=== PATIENT | female | born 1950 | race Caucasian/White ===

== ENCOUNTER 2018-01-01 10:15 | Emergency (ER) | payer MEDICARE ==
[2018-01-01 10:59] LABS: BASOPHILS % (AUTO) 0.6 % (0.0-5.0); EOSINOPHILS % (AUTO) 2.2 % (0.0-8.0); HEMATOCRIT 48.1 % (36-48); LYMPHOCYTES % (AUTO) 27.4 % (21.0-51.0); MEAN CORPUSCULAR HEMOGLOBIN 32.2 pg (27.0-33.0); MEAN CORPUSCULAR HGB CONC 34.1 g/dL (32.0-36.0); MEAN CORPUSCULAR VOLUME 94.3 fL (79-99); MONOCYTES % (AUTO) 11.7 % (3.0-13.0); NEUTROPHILS % (AUTO) 58.1 % (40.0-77.0); PLATELET COUNT (AUTO) 251 K/uL (130-400); RED BLOOD CELL COUNT(AUTO) 5.11 MIL/uL (4.00-5.50); RED CELL DISTRIBUTION WIDTH 13.4 % (11.0-15.5); WHITE BLOOD COUNT (AUTO) 7.9 K/uL (4.8-10.8)
[2018-01-01 11:10] LABS: CARBON DIOXIDE 26 mmol/L (21-32); CHLORIDE 106 mmol/L (101-111); CREATININE 0.7 mg/dL (0.5-1.5); GLOMERULAR FILTR. RATE CALC 89 mL/min (>60); GLUCOSE,RANDOM 109 mg/dL (70-105); POTASSIUM 4.4 mmol/L (3.5-5.1); SODIUM SERUM 142 mmol/L (136-145); UREA NITROGEN, BLOOD 22 mg/dL (7-18)
[2018-01-01 11:25] LABS: ALANINE AMINOTRANSFERASE 49 U/L (12-78); ALBUMIN 4.3 g/dL (3.5-5.0); ASPARTATE AMINOTRANSFERASE 33 U/L (10-37); BILIRUBIN,TOTAL 0.3 mg/dL (0.2-1.0); CREATINE KINASE MB < 0.5 ng/mL (0.5-3.6); CREATINE KINASE, TOTAL 49 U/L (21-232); TOTAL PROTEIN, SERUM 7.9 g/dL (6.0-8.3)
== END 2018-01-01 12:39 | disposition home or self-care (01) ==
LOC: EDH 10:15
DX: I10 Essential (primary) hypertension (principal); Z90.710 Acquired absence of both cervix and uterus; Z98.890 Other specified postprocedural states; Z72.0 Tobacco use
CPT/HCPCS: 36415; 71045; 80053; 82550; 82553; 84484; 85025; 93005

== ENCOUNTER → 2018-01-07 | Outpatient (CLI) | payer MEDICARE | END | disposition home or self-care (01) | LOC: RAH 07:37 | PROVIDERS: ATTEND Internal Medicine | DX: K76.0 Fatty (change of) liver, not elsewhere classified (principal) | CPT/HCPCS: 76700 ==

== ENCOUNTER 2018-08-21 17:56 | Inpatient (IN) | payer MEDICARE ==
[~2018-08-21] VITALS: Ht 157.5 cm; Wt 78.3 kg
[2018-08-21 18:32] LABS: BASOPHILS % (AUTO) 0.5 % (0.0-5.0); EOSINOPHILS % (AUTO) 1.8 % (0.0-8.0); HEMATOCRIT 44.9 % (36-48); LYMPHOCYTES % (AUTO) 18.8 % (21.0-51.0); MEAN CORPUSCULAR HEMOGLOBIN 31.6 pg (27.0-33.0); MEAN CORPUSCULAR HGB CONC 32.9 g/dL (32.0-36.0); MONOCYTES % (AUTO) 11.4 % (3.0-13.0); NEUTROPHILS % (AUTO) 67.5 % (40.0-77.0); PLATELET COUNT (AUTO) 258 K/uL (130-400); RED BLOOD CELL COUNT(AUTO) 4.68 MIL/uL (4.00-5.50); RED CELL DISTRIBUTION WIDTH 13.2 % (11.0-15.5); WHITE BLOOD COUNT (AUTO) 13.6 K/uL (4.8-10.8)
[2018-08-21] MEDS ORDERED: ONDANSETRON HCL 4 MG/2 ML VIAL ONE (18:32)
[2018-08-21] MEDS ORDERED: MORPHINE SULFATE 4 MG/1ML SYG ONE ×2 (18:32→20:58)
[2018-08-21] MEDS ORDERED: SODIUM CHLORIDE 0.9% 500ML 500 ML IV ONE (18:33)
[2018-08-21] MEDS ORDERED: MORPHINE SULFATE 2 MG/ML 1ML SYG ONE (18:33)
[2018-08-21 18:51] LABS: CREATININE 0.9 mg/dL (0.5-1.5); POTASSIUM 4.1 mmol/L (3.5-5.1)
[2018-08-21 18:54] LABS: BILIRUBIN,TOTAL 0.6 mg/dL (0.2-1.0); TOTAL PROTEIN, SERUM 7.4 g/dL (6.0-8.3)
[2018-08-21 19:52] LABS: APPEARANCE,URINE Cloudy (CLEAR); BILIRUBIN,URINE Negative (NEGATIVE); COLOR,URINE Yellow (YELLOW); GLUCOSE, URINE (UA) Negative (NEGATIVE); KETONES,URINE Trace mg/dL (NEGATIVE); LEUKOCYTE ESTERASE ,URINE Trace (NEGATIVE); NITRATE,URINE Negative (NEGATIVE); OCCULT BLOOD,URINE Large (NEGATIVE); PH,URINE 5.5 (5.0-8.0); PROTEIN,URINE Negative (NEGATIVE)
[2018-08-21 20:05] LABS: BACTERIA,URINE Few /HPF (None Seen); SQUAMOUS EPITHELIAL CELL,UR 0-2 /HPF (0-2)
[2018-08-21] MEDS ORDERED: SODIUM CHLORIDE 0.9% 1000ML 1,000 ML IV ONE (20:58)
[2018-08-22 00:20] VITALS: BP 155/66
[2018-08-22] MEDS ORDERED: SODIUM CHLORIDE 0.9% 1000ML 1,000 ML IV ONE (02:00)
[2018-08-22] MEDS ORDERED: ONDANSETRON HCL 4 MG/2 ML VIAL IVP PRN (02:00)
[2018-08-22] MEDS ORDERED: MORPHINE SULFATE 4 MG/1ML SYG IM PRN ×2 (02:00)
[2018-08-22] MEDS: SODIUM CHLORIDE 0.9% 1000ML 1,000 ML IV SCH ×3 (02:47→20:50)
[2018-08-22] MEDS: LEVOFLOXACIN 500 MG/D5W 100 ML 100 ML IV SCH (02:47)
[2018-08-22] MEDS: MORPHINE SULFATE 4 MG/1ML SYG IVP PRN ×3 (03:20→13:46)
[2018-08-22 04:22] VITALS: BP 135/69
[2018-08-22 06:00] LABS: HEMATOCRIT 40.4 % (36-48); MEAN CORPUSCULAR HEMOGLOBIN 32.7 pg (27.0-33.0); MEAN CORPUSCULAR HGB CONC 33.6 g/dL (32.0-36.0); MEAN CORPUSCULAR VOLUME 97.2 fL (79-99); PLATELET COUNT (AUTO) 230 K/uL (130-400); RED BLOOD CELL COUNT(AUTO) 4.16 MIL/uL (4.00-5.50); RED CELL DISTRIBUTION WIDTH 13.4 % (11.0-15.5); WHITE BLOOD COUNT (AUTO) 16.7 K/uL (4.8-10.8)
[2018-08-22 06:05] LABS: BAND NEUTROPHILS % (MANUAL) 1 % (0-2); LYMPHOCYTES % (MANUAL) 6 % (22-44); MAN.DIFF COMMENT-IMPRESSION MANUAL DIFFERENTIAL; MONOCYTES % (MANUAL) 14 % (2-9); SEGMENTED NEUTROPHILS % 79 % (40-70)
[2018-08-22 06:06] LABS: PLATELET MORPHOLOGY COMMENT ADEQUATE
[2018-08-22 06:16] LABS: ALBUMIN 3.3 g/dL (3.5-5.0); BILIRUBIN,TOTAL 0.4 mg/dL (0.2-1.0); CREATININE 1.5 mg/dL (0.5-1.5); CRP QUANTITATIVE 18.8 mg/L (0.00-9.0); POTASSIUM 4.4 mmol/L (3.5-5.1); TOTAL PROTEIN, SERUM 6.3 g/dL (6.0-8.3)
[2018-08-22 08:00] VITALS: BP 111/61
[2018-08-22] MEDS ORDERED: MORPHINE SULFATE 4 MG/1ML SYG IVP PRN (08:00)
[2018-08-22] MEDS ORDERED: CEFTRIAXONE SODIUM 2 GM VIAL IVP SCH (10:00)
[2018-08-22 11:00] VITALS: BP 122/68
[2018-08-22] MEDS: TAMSULOSIN HCL 0.4 MG CAP.ER.24H PO SCH (12:02)
[2018-08-22 16:00] VITALS: BP 150/73
[2018-08-22] MEDS ORDERED: ACETAMINOPHEN 325 MG TAB ONE (17:23)
[2018-08-22 19:50] VITALS: BP 150/87
[2018-08-23] VITALS (7 sets, daily range): BP systolic 135–183; BP diastolic 69–85
[2018-08-23] MEDS ORDERED: ACETAMINOPHEN 325 MG TAB PO PRN ×2 (00:15→06:59)
[2018-08-23] MEDS ORDERED: PROMETHAZINE HCL 25 MG/ML 1ML AMPULE IM ONE (00:23)
[2018-08-23] MEDS ORDERED: ACETAMINOPHEN 325 MG TAB ONE (00:23)
[2018-08-23] MEDS: SODIUM CHLORIDE 0.9% 1000ML 1,000 ML IV SCH ×3 (01:54→18:52)
[2018-08-23] MEDS: LEVOFLOXACIN 500 MG/D5W 100 ML 100 ML IV SCH (02:04)
[2018-08-23] MEDS ORDERED: PROMETHAZINE HCL 25 MG/ML 1ML AMPULE IM PRN ×2 (02:30→07:00)
[2018-08-23 05:49] LABS: BASOPHILS % (AUTO) 0.3 % (0.0-5.0); EOSINOPHILS % (AUTO) 0.6 % (0.0-8.0); HEMATOCRIT 37.6 % (36-48); LYMPHOCYTES % (AUTO) 11.8 % (21.0-51.0); MEAN CORPUSCULAR HEMOGLOBIN 32.5 pg (27.0-33.0); MEAN CORPUSCULAR HGB CONC 33.6 g/dL (32.0-36.0); MEAN CORPUSCULAR VOLUME 96.8 fL (79-99); MONOCYTES % (AUTO) 11.2 % (3.0-13.0); NEUTROPHILS % (AUTO) 76.1 % (40.0-77.0); PLATELET COUNT (AUTO) 168 K/uL (130-400); RED BLOOD CELL COUNT(AUTO) 3.89 MIL/uL (4.00-5.50); RED CELL DISTRIBUTION WIDTH 13.4 % (11.0-15.5); WHITE BLOOD COUNT (AUTO) 11.8 K/uL (4.8-10.8)
[2018-08-23 05:59] LABS: CREATININE 0.8 mg/dL (0.5-1.5); POTASSIUM 3.9 mmol/L (3.5-5.1)
[2018-08-23] MEDS ORDERED: IOHEXOL 350 MG/ML 100ML INFUS..BTL IV ONE (07:32)
[2018-08-23] MEDS ORDERED: CLOP75TA32 PO (09:34)
[2018-08-23] MEDS ORDERED: METO25TA6 PO (09:34)
[2018-08-23] MEDS ORDERED: PRAV40TA3 PO (09:34)
[2018-08-23] MEDS ORDERED: AMLO10TA6 PO (09:35)
[2018-08-23] MEDS ORDERED: AMLODIPINE BESYLATE 5 MG TAB PO ONE (10:13)
[2018-08-23] MEDS: TAMSULOSIN HCL 0.4 MG CAP.ER.24H PO SCH (10:17)
[2018-08-23] MEDS: FAMOTIDINE 20MG TAB 20 MG TAB PO SCH ×2 (10:17→20:55)
[2018-08-23] MEDS: CEFTRIAXONE SODIUM 1 GM IVP SCH (10:17)
[2018-08-23] MEDS: ENOXAPARIN SODIUM 30 MG/0.3 ML SQ SCH (10:21)
[2018-08-23] MEDS ORDERED: METOPROLOL TARTRATE 25 MG TAB ONE (16:20)
[2018-08-23] MEDS ORDERED: CLONIDINE HCL 0.1 MG TABLET PO PRN (16:45)
[2018-08-23] MEDS ORDERED: HYDRALAZINE HCL 20 MG/ML VIAL IV PRN (16:45)
[2018-08-23] MEDS ORDERED: SIMVASTATIN 20 MG TABLET PO SCH (21:00)
[2018-08-23] MEDS ORDERED: METOPROLOL TARTRATE 25 MG TAB PO SCH (21:00)
[2018-08-23] MEDS ORDERED: METOPROLOL TARTRATE 50 MG TAB PO SCH (21:00)
[2018-08-24 00:17] VITALS: BP 153/73
[2018-08-24] MEDS: LEVOFLOXACIN 500 MG/D5W 100 ML 100 ML IV SCH (01:12)
[2018-08-24 04:20] VITALS: BP 179/95
[2018-08-24 05:02] VITALS: BP 160/76
[2018-08-24 05:20] LABS: BASOPHILS % (AUTO) 0.3 % (0.0-5.0); HEMATOCRIT 39.2 % (36-48); LYMPHOCYTES % (AUTO) 11.3 % (21.0-51.0); MEAN CORPUSCULAR HEMOGLOBIN 32.9 pg (27.0-33.0); MEAN CORPUSCULAR HGB CONC 34.4 g/dL (32.0-36.0); MEAN CORPUSCULAR VOLUME 95.4 fL (79-99); NEUTROPHILS % (AUTO) 75.4 % (40.0-77.0); PLATELET COUNT (AUTO) 188 K/uL (130-400); RED BLOOD CELL COUNT(AUTO) 4.11 MIL/uL (4.00-5.50); RED CELL DISTRIBUTION WIDTH 13.3 % (11.0-15.5); WHITE BLOOD COUNT (AUTO) 11.6 K/uL (4.8-10.8)
[2018-08-24] MEDS: SODIUM CHLORIDE 0.9% 1000ML 1,000 ML IV SCH (05:23)
[2018-08-24 05:42] LABS: ALBUMIN 3.3 g/dL (3.5-5.0); BILIRUBIN,TOTAL 0.5 mg/dL (0.2-1.0); CREATININE 0.7 mg/dL (0.5-1.5); POTASSIUM 3.4 mmol/L (3.5-5.1); TOTAL PROTEIN, SERUM 6.8 g/dL (6.0-8.3)
[2018-08-24] MEDS ORDERED: METO25TA6 PO (08:56)
[2018-08-24] MEDS ORDERED: AMLODIPINE BESYLATE 5 MG TAB PO SCH (09:00)
[2018-08-24] MEDS ORDERED: METOPROLOL TARTRATE 25 MG TAB PO SCH (09:00)
[2018-08-24] MEDS ORDERED: CLOPIDOGREL BISULFATE 75 MG TAB PO SCH (09:00)
[2018-08-24] MEDS ORDERED: CEFD300C3 PO (09:10)
[2018-08-24 09:24] VITALS: BP 168/72
[2018-08-24] MEDS: CEFTRIAXONE SODIUM 1 GM IVP SCH (09:39)
[2018-08-24] MEDS: TAMSULOSIN HCL 0.4 MG CAP.ER.24H PO SCH (09:39)
[2018-08-24] MEDS: ENOXAPARIN SODIUM 30 MG/0.3 ML SQ SCH (09:39)
[2018-08-24] MEDS: FAMOTIDINE 20MG TAB 20 MG TAB PO SCH (09:40)
== END 2018-08-24 11:54 | disposition home or self-care (01) | DRG 694 ==
LOC: EDH 17:56 → EDHIP 19:50 → 3DH 08-22 00:30
PROVIDERS: ADMIT Hospitalist; ATTEND Hospitalist
PROC: 3E0234Z Introduction of Serum, Toxoid and Vaccine into Muscle, Percutaneous Approach (ICD-10-PCS; principal; 2018-08-22)
DX: N13.2 Hydronephrosis with renal and ureteral calculous obstruction (principal); I10 Essential (primary) hypertension; F17.210 Nicotine dependence, cigarettes, uncomplicated; E66.9 Obesity, unspecified; D72.829 Elevated white blood cell count, unspecified; Z87.442 Personal history of urinary calculi; Z90.5 Acquired absence of kidney; Z90.710 Acquired absence of both cervix and uterus; Z23 Encounter for immunization; Z68.31 Body mass index [BMI] 31.0-31.9, adult
CPT/HCPCS: 36415; 74176; 74400; 76770; 80048; 80053; 81001; 82150; 82360; 82550; 83605; 83690; 84484; 85025; 86140; 93005; 99291; A4218; J0360; J0696; J1650; J1956; J2270; J2405; J2550; J7030; J7040; Q9967

== ENCOUNTER → 2021-03-27 | Outpatient (CLI) | payer MEDICARE ==
[~2021-03-27] MED LIST: AMLO-258 PO; CEFD300C3 PO; CLOP75TA32 PO; METO25TA6 PO; PRAV40TA3 PO
== END | disposition home or self-care (01) ==
LOC: RAH 13:01
PROVIDERS: ATTEND Internal Medicine
DX: R06.00 Dyspnea, unspecified (principal)
CPT/HCPCS: 71250

== ENCOUNTER → 2021-11-06 | Outpatient (CLI) | payer MEDICARE ==
[~2021-11-06] MED LIST changes: +AMLO-257 PO; +CITA10TA89 PO; +CLON0.1T PO; +ROSU5TAB12 PO; +TRAZ-185 PO
[2021-11-06 13:36] LABS: BASOPHILS % (AUTO) 0.3 % (0.0-5.0); HEMATOCRIT 43.4 % (36-48); MEAN CORPUSCULAR HEMOGLOBIN 31.7 pg (27.0-33.0); MEAN CORPUSCULAR HGB CONC 33.9 g/dL (32.0-36.0); MEAN CORPUSCULAR VOLUME 93.5 fL (79-99); MONOCYTES % (AUTO) 13.1 % (3.0-13.0); NEUTROPHILS % (AUTO) 75.9 % (40.0-77.0); PLATELET COUNT (AUTO) 345 K/uL (130-400); RED BLOOD CELL COUNT(AUTO) 4.64 MIL/uL (4.00-5.50); RED CELL DISTRIBUTION WIDTH 13.1 % (11.0-15.5); WHITE BLOOD COUNT (AUTO) 15.1 K/uL (4.8-10.8)
[2021-11-06 13:46] LABS: APPEARANCE,URINE Clear (CLEAR); BILIRUBIN,URINE Negative (NEGATIVE); COLOR,URINE Dark Yellow (YELLOW); GLUCOSE, URINE (UA) Negative (NEGATIVE); KETONES,URINE >=160 mg/dL (NEGATIVE); LEUKOCYTE ESTERASE ,URINE Negative (NEGATIVE); NITRATE,URINE Negative (NEGATIVE); OCCULT BLOOD,URINE Nonhemolyzed Trace (NEGATIVE); PROTEIN,URINE POS 2+ mg/dL (NEGATIVE)
[2021-11-06 13:50] LABS: ALBUMIN 3.3 g/dL (3.5-5.0); BILIRUBIN,TOTAL 0.5 mg/dL (0.2-1.0); CREATININE 0.6 mg/dL (0.5-1.5); POTASSIUM 4.3 mmol/L (3.5-5.1); TOTAL PROTEIN, SERUM 7.9 g/dL (6.0-8.3)
[2021-11-06 13:51] LABS: BACTERIA,URINE Rare /HPF (None Seen); RBC,URINE 0-1 /HPF (0-1); SQUAMOUS EPITHELIAL CELL,UR Rare /HPF (0-2); WBC,URINE 0-1 /HPF (0-1)
== END | disposition home or self-care (01) ==
LOC: LAB 12:43
PROVIDERS: ATTEND Internal Medicine
DX: R10.9 Unspecified abdominal pain (principal)
CPT/HCPCS: 36415; 80053; 81001; 83690; 85025

== ENCOUNTER → 2021-11-07 | Outpatient (CLI) | payer MEDICARE ==
[~2021-11-07] MED LIST changes: +IOHEXOL 350 MG/ML 100ML INFUS..BTL IV ONE
== END | disposition home or self-care (01) ==
LOC: RAH 09:08
PROVIDERS: ATTEND Internal Medicine
DX: K63.0 Abscess of intestine (principal); R10.9 Unspecified abdominal pain
CPT/HCPCS: 74178; Q9967

== ENCOUNTER 2022-01-07 06:21 | Day surgery (SDC) | payer MEDICARE ==
[2022-01-07] VITALS (11 sets, daily range): BP systolic 97–139; BP diastolic 53–85
[~2022-01-07] VITALS: Ht 157.5 cm; Wt 78.9 kg
[~2022-01-07 06:21] MED LIST changes: +ALBUHFA IH; -AMLO-258 PO; -CEFD300C3 PO; -IOHEXOL 350 MG/ML 100ML INFUS..BTL IV ONE; -PRAV40TA3 PO; +TIOT18CA3 IH; -TRAZ-185 PO
[2022-01-07] MEDS ORDERED: 0.9%NACL 1000ML 1,000 ML IV ONE (06:26)
[2022-01-07] MEDS ORDERED: PROPOFOL 10 MG/ML 20ML VIAL IV ONE (08:30)
[2022-01-07] MEDS ORDERED: LIDOCAINE PF 100MG/5ML (2%) SYRINGE 5ML ONE (08:31)
[2022-01-07] MEDS ORDERED: MIDAZOLAM HCL 1 MG/ML 2ML VIAL ONE (08:31)
[2022-01-07] MEDS ORDERED: EPHEDRINE SULFATE 50 MG/ML AMPULE ONE (08:41)
== END 2022-01-07 12:00 | disposition home or self-care (01) ==
LOC: DAH 06:21 → ENDO 06:21
PROVIDERS: ATTEND Surgery
DX: R10.31 Right lower quadrant pain (principal); Z20.822 Contact with and (suspected) exposure to COVID-19; I10 Essential (primary) hypertension; J44.9 Chronic obstructive pulmonary disease, unspecified; E78.5 Hyperlipidemia, unspecified; Z90.710 Acquired absence of both cervix and uterus; Z98.891 History of uterine scar from previous surgery; Z98.890 Other specified postprocedural states; Z98.42 Cataract extraction status, left eye; Z98.41 Cataract extraction status, right eye; Z87.891 Personal history of nicotine dependence; Z79.82 Long term (current) use of aspirin; Z79.899 Other long term (current) drug therapy
CPT/HCPCS: 45378; 74018; 87635; 93005; A4215 ×2; A4221; A4222; A4223; A4606; A4620; A4657; A4663; C9803; J2001; J2250; J2704; J3490; J7030

== ENCOUNTER → 2022-07-08 | Outpatient (CLI) | payer MEDICARE ==
[2022-07-08 13:55] LABS: BASOPHILS % (AUTO) 0.3 % (0.0-5.0); EOSINOPHILS % (AUTO) 0.7 % (0.0-8.0); HEMATOCRIT 47.8 % (36-48); LYMPHOCYTES % (AUTO) 22.4 % (21.0-51.0); MEAN CORPUSCULAR HEMOGLOBIN 30.5 pg (27.0-33.0); MEAN CORPUSCULAR HGB CONC 32.6 g/dL (32.0-36.0); MEAN CORPUSCULAR VOLUME 93.5 fL (79-99); MONOCYTES % (AUTO) 9.2 % (3.0-13.0); NEUTROPHILS % (AUTO) 67.2 % (40.0-77.0); PLATELET COUNT (AUTO) 310 K/uL (130-400); RED BLOOD CELL COUNT(AUTO) 5.11 MIL/uL (4.00-5.50); RED CELL DISTRIBUTION WIDTH 13.2 % (11.0-15.5); WHITE BLOOD COUNT (AUTO) 12.2 K/uL (4.8-10.8)
[2022-07-08 14:07] LABS: ALBUMIN 3.9 g/dL (3.5-5.0); CREATININE 0.7 mg/dL (0.5-1.5); CRP QUANTITATIVE 14.3 mg/L (0.00-9.0); POTASSIUM 4.6 mmol/L (3.5-5.1)
== END | disposition home or self-care (01) ==
LOC: LAB 11:31
PROVIDERS: ATTEND Internal Medicine Gastroenterology
DX: R10.31 Right lower quadrant pain (principal)
CPT/HCPCS: 36415; 80053; 85025; 86140

== ENCOUNTER → 2022-07-09 | Outpatient (CLI) | payer MEDICARE ==
[~2022-07-09] MED LIST changes: +IOHEXOL 350 MG/ML 100ML INFUS..BTL IV ONE
== END | disposition home or self-care (01) ==
LOC: RAH 09:29
PROVIDERS: ATTEND Internal Medicine Gastroenterology
DX: R10.31 Right lower quadrant pain (principal); R14.0 Abdominal distension (gaseous)
CPT/HCPCS: 74178; Q9967

== ENCOUNTER → 2022-10-01 | Outpatient (CLI) | payer MEDICARE ==
[~2022-10-01] MED LIST changes: -IOHEXOL 350 MG/ML 100ML INFUS..BTL IV ONE
== END | disposition home or self-care (01) ==
LOC: RAH 07:19
PROVIDERS: ATTEND Internal Medicine
DX: R14.0 Abdominal distension (gaseous) (principal); R10.13 Epigastric pain
CPT/HCPCS: 78264; A9541

== ENCOUNTER 2022-12-17 00:30 | Observation (INO) | payer MEDICARE ==
[~2022-12-17] VITALS: Ht 157.5 cm; Wt 76.5 kg
[~2022-12-17 00:30] MED LIST changes: -CITA10TA89 PO; -CLON0.1T PO; -ROSU5TAB12 PO
[2022-12-17 01:04] LABS: BASOPHILS % (AUTO) 0.2 % (0.0-5.0); EOSINOPHILS % (AUTO) 0.1 % (0.0-8.0); HEMATOCRIT 44.2 % (36-48); LYMPHOCYTES % (AUTO) 4.7 % (21.0-51.0); MEAN CORPUSCULAR HEMOGLOBIN 29.4 pg (27.0-33.0); MEAN CORPUSCULAR HGB CONC 34.2 g/dL (32.0-36.0); MONOCYTES % (AUTO) 8.1 % (3.0-13.0); NEUTROPHILS % (AUTO) 86.4 % (40.0-77.0); PLATELET COUNT (AUTO) 463 K/uL (130-400); RED BLOOD CELL COUNT(AUTO) 5.14 MIL/uL (4.00-5.50); RED CELL DISTRIBUTION WIDTH 13.2 % (11.0-15.5); WHITE BLOOD COUNT (AUTO) 19.2 K/uL (4.8-10.8)
[2022-12-17 01:25] LABS: ALBUMIN 3.8 g/dL (3.5-5.0); CREATININE 2.9 mg/dL (0.5-1.5); POTASSIUM 4.4 mmol/L (3.5-5.1); TOTAL PROTEIN, SERUM 8.4 g/dL (6.0-8.3)
[2022-12-17] MEDS ORDERED: 0.9%NACL 1000ML 1,000 ML IV ONE ×3 (01:30→02:30)
[2022-12-17] MEDS ORDERED: ONDANSETRON 4MG INJ IVP ONE (01:30)
[2022-12-17] MEDS ORDERED: ZOSYN 3.375GM +NS 50ML IVPB ONE (01:30)
[2022-12-17] MEDS ORDERED: CLONIDINE HCL 0.1 MG TABLET PO PRN (02:30)
[2022-12-17] MEDS ORDERED: HYDRALAZINE 20MG/ML VIAL IV PRN (02:30)
[2022-12-17] MEDS ORDERED: ACETAMINOPHEN 650 MG SUPPOSITORY RC PRN (02:30)
[2022-12-17] MEDS ORDERED: LABETALOL 20MG SYG IV PRN (02:30)
[2022-12-17] MEDS: ONDANSETRON 4MG INJ IVP PRN ×4 (05:12→20:46)
[2022-12-17] MEDS: INSULIN HUMULIN R 100 UNIT/ML 3ML SQ SCH ×3 (07:30→21:00)
[2022-12-17 08:36] VITALS: BP 157/83
[2022-12-17] MEDS: ASPIRIN 81MG CHEW TAB PO SCH (09:45)
[2022-12-17] MEDS: ENOXAPARIN SODIUM 30 MG/0.3 ML SQ SCH (09:46)
[2022-12-17] MEDS: 0.9%NACL 1000ML 1,000 ML IV SCH ×2 (11:25→19:25)
[2022-12-17 11:27] VITALS: BP 136/72
[2022-12-17] MEDS: CEFEPIME HCL 2 GM VIAL IVP SCH (16:05)
[2022-12-17] MEDS: ACETAMINOPHEN 325 MG TAB PO PRN ×2 (16:06→20:42)
[2022-12-17 17:27] VITALS: BP 120/70
[2022-12-17] MEDS ORDERED: HONEY 1 APPL/ML TUBE TP SCH (17:30)
[2022-12-17 17:51] LABS: APPEARANCE,URINE CLEAR (CLEAR); BILIRUBIN,URINE NEGATIVE (NEGATIVE); COLOR,URINE COLORLESS (YELLOW); GLUCOSE, URINE (UA) NEGATIVE (NEGATIVE); KETONES,URINE 5 mg/dL (NEGATIVE); LEUKOCYTE ESTERASE ,URINE NEGATIVE Leu/uL (NEGATIVE); NITRATE,URINE NEGATIVE (NEGATIVE); OCCULT BLOOD,URINE NEGATIVE (NEGATIVE); PROTEIN,URINE NEGATIVE (NEGATIVE); UROBILINOGEN,URINE 0.2 mg/dL (0.2-1.0)
[2022-12-17 17:53] LABS: MUCUS,URINE RARE LPF (None Seen); RBC,URINE 0-1 /HPF (0-1); SQUAMOUS EPITHELIAL CELL,UR RARE /HPF (0-2); WBC,URINE 0-1 /HPF (0-1); YEAST,URINE BUDDING RARE /HPF (None Seen)
[2022-12-17 19:00] VITALS: BP 118/60
[2022-12-17] MEDS: SIMVASTATIN 20 MG TABLET PO SCH (20:46)
[2022-12-17] MEDS: METRONIDAZOLE 500MG/100ML BAG 100 ML IVPB SCH (22:05)
[2022-12-17] MEDS ORDERED: CITA10TA89 PO (22:10)
[2022-12-17] MEDS ORDERED: METO25 PO (22:10)
[2022-12-17 23:42] VITALS: BP 139/67
[2022-12-18] MEDS: 0.9%NACL 1000ML 1,000 ML IV SCH ×3 (02:41→19:25)
[2022-12-18] MEDS: ONDANSETRON 4MG INJ IVP PRN ×2 (02:41→17:17)
[2022-12-18] MEDS: CEFEPIME HCL 2 GM VIAL IVP SCH ×2 (02:41→16:49)
[2022-12-18 04:00] VITALS: BP 143/73
[2022-12-18] MEDS: METRONIDAZOLE 500MG/100ML BAG 100 ML IVPB SCH ×3 (05:21→19:24)
[2022-12-18 05:34] LABS: MEAN CORPUSCULAR HEMOGLOBIN 29.5 pg (27.0-33.0); MEAN CORPUSCULAR HGB CONC 32.2 g/dL (32.0-36.0); MEAN CORPUSCULAR VOLUME 91.6 fL (79-99); RED BLOOD CELL COUNT(AUTO) 3.93 MIL/uL (4.00-5.50); RED CELL DISTRIBUTION WIDTH 13.4 % (11.0-15.5); WHITE BLOOD COUNT (AUTO) 11.6 K/uL (4.8-10.8)
[2022-12-18] MEDS: INSULIN HUMULIN R 100 UNIT/ML 3ML SQ SCH ×4 (05:51→20:03)
[2022-12-18 05:56] LABS: ALBUMIN 2.4 g/dL (3.5-5.0); CREATININE 1.5 mg/dL (0.5-1.5); MAGNESIUM 1.8 mg/dL (1.80-2.40); PHOSPHORUS 2.1 mg/dL (2.5-4.9); POTASSIUM 3.2 mmol/L (3.5-5.1); TOTAL PROTEIN, SERUM 5.7 g/dL (6.0-8.3)
[2022-12-18] MEDS ORDERED: POTASSIUM CHLORIDE 10% ELIXIR 20 MEQ/15 ML UDCUP PO ONE (06:30)
[2022-12-18 07:15] VITALS: BP 137/75
[2022-12-18] MEDS: ENOXAPARIN SODIUM 30 MG/0.3 ML SQ SCH (08:44)
[2022-12-18] MEDS: ASPIRIN 81MG CHEW TAB PO SCH (08:44)
[2022-12-18] MEDS ORDERED: LIDOCAINE HCL-MPF 1% 2ML VIAL IV PRN (10:00)
[2022-12-18] MEDS ORDERED: POTASSIUM CHLORIDE 10% ELIXIR 20 MEQ/15 ML UDCUP PO PRN (10:00)
[2022-12-18] MEDS ORDERED: POTASSIUM CHLORIDE 20MEQ/100ML 100 ML IV PRN (10:00)
[2022-12-18] MEDS ORDERED: MAGNESIUM 2GM PREMIX 50ML 50 ML IV PRN (10:00)
[2022-12-18 11:10] VITALS: BP 127/73
[2022-12-18] MEDS: KCL 20 MEQ ERTAB PO PRN ×3 (11:46→19:24)
[2022-12-18 15:15] VITALS: BP 142/72
[2022-12-18 19:00] VITALS: BP 144/67
[2022-12-18] MEDS: SIMVASTATIN 20 MG TABLET PO SCH (19:24)
[2022-12-18] MEDS: ACETAMINOPHEN 325 MG TAB PO PRN (20:53)
[2022-12-19] VITALS: BP 156/75
[2022-12-19] MEDS ORDERED: TEMAZEPAM 15 MG CAPSULE ONE (00:40)
[2022-12-19] MEDS ORDERED: TEMAZEPAM 15 MG CAPSULE PO PRN (01:00)
[2022-12-19] MEDS: CEFEPIME HCL 2 GM VIAL IVP SCH ×2 (02:16→16:21)
[2022-12-19] MEDS: 0.9%NACL 1000ML 1,000 ML IV SCH ×2 (02:16→10:15)
[2022-12-19 04:00] VITALS: BP 119/87
[2022-12-19 05:25] LABS: BASOPHILS % (AUTO) 0.2 % (0.0-5.0); EOSINOPHILS % (AUTO) 0.5 % (0.0-8.0); HEMATOCRIT 39.8 % (36-48); LYMPHOCYTES % (AUTO) 11.7 % (21.0-51.0); MEAN CORPUSCULAR HEMOGLOBIN 29.6 pg (27.0-33.0); MEAN CORPUSCULAR HGB CONC 31.7 g/dL (32.0-36.0); MEAN CORPUSCULAR VOLUME 93.6 fL (79-99); MONOCYTES % (AUTO) 12.1 % (3.0-13.0); NEUTROPHILS % (AUTO) 74.9 % (40.0-77.0); PLATELET COUNT (AUTO) 260 K/uL (130-400); RED BLOOD CELL COUNT(AUTO) 4.25 MIL/uL (4.00-5.50); RED CELL DISTRIBUTION WIDTH 13.7 % (11.0-15.5); WHITE BLOOD COUNT (AUTO) 10.8 K/uL (4.8-10.8)
[2022-12-19] MEDS: METRONIDAZOLE 500MG/100ML BAG 100 ML IVPB SCH ×2 (05:34→14:49)
[2022-12-19 05:39] LABS: CREATININE 1.3 mg/dL (0.5-1.5); MAGNESIUM 2.1 mg/dL (1.80-2.40)
[2022-12-19] MEDS: INSULIN HUMULIN R 100 UNIT/ML 3ML SQ SCH ×3 (05:44→16:30)
[2022-12-19 07:20] VITALS: BP 146/87
[2022-12-19] MEDS: ASPIRIN 81MG CHEW TAB PO SCH (08:34)
[2022-12-19] MEDS: ENOXAPARIN SODIUM 30 MG/0.3 ML SQ SCH (08:34)
[2022-12-19 11:20] VITALS: BP 106/75
[2022-12-19 15:20] VITALS: BP 134/67
== END 2022-12-19 19:58 ==
LOC: EDH 00:30 → EDHIP 02:09 → 3BH 08:07
PROVIDERS: ADMIT Internal Medicine; ATTEND Internal Medicine
DX: K56.600 Partial intestinal obstruction, unspecified as to cause (principal); Z20.822 Contact with and (suspected) exposure to COVID-19; T81.89XA Other complications of procedures, not elsewhere classified, initial encounter; E87.8 Other disorders of electrolyte and fluid balance, not elsewhere classified; J44.9 Chronic obstructive pulmonary disease, unspecified; I10 Essential (primary) hypertension; I73.9 Peripheral vascular disease, unspecified; N30.00 Acute cystitis without hematuria; N17.9 Acute kidney failure, unspecified; R74.01 Elevation of levels of liver transaminase levels; Z79.899 Other long term (current) drug therapy; E86.0 Dehydration; Z90.49 Acquired absence of other specified parts of digestive tract; Z90.5 Acquired absence of kidney; Z93.3 Colostomy status
CPT/HCPCS: 96376 ×2; 96372 ×3; 96361 ×3; 96365; 96366 ×3; 96375 ×2; 96367; 80053 ×2; 83690; 85025 ×2; 87040 ×2; 87046; 87088; 82948 ×10; 83605 ×2; 87177; 87324; 81001; 36415 ×3; 87635; 74176; 99291; 97161; 97116 ×2; 84145; 83735 ×2; 84100 ×2; 85027; 80048; 97039; G0378 ×64; J7030 ×7; J1650 ×3; J2405 ×5; J2543; J0692 ×5; J3490 ×6; J3475

== ENCOUNTER 2022-12-29 00:18 | Inpatient (IN) | payer MEDICARE ==
[2022-12-29] VITALS (38 sets, daily range): BP systolic 89–115; BP diastolic 40–73
[~2022-12-29] VITALS: Ht 157.5 cm; Wt 79.8 kg
[~2022-12-29 00:18] MED LIST changes: -ALBUHFA IH; +CITA10TA89 PO; +METO25 PO; -METO25TA6 PO; -TIOT18CA3 IH
[2022-12-29] MEDS ORDERED: 0.9%NACL 1000ML 1,000 ML IV SCH ×2 (00:30→03:00)
[2022-12-29] MEDS ORDERED: ONDANSETRON 4MG INJ IV ONE ×2 (01:00→03:30)
[2022-12-29] MEDS ORDERED: MORPHINE 4 MG SYG IVP ONE (01:00)
[2022-12-29] MEDS: ASPIRIN 81MG CHEW TAB PO ONE ×2 (01:02→01:03)
[2022-12-29 01:15] LABS: BASOPHILS % (AUTO) 0.2 % (0.0-5.0); HEMATOCRIT 38.6 % (36-48); LYMPHOCYTES % (AUTO) 6.2 % (21.0-51.0); MEAN CORPUSCULAR HEMOGLOBIN 29.9 pg (27.0-33.0); MEAN CORPUSCULAR HGB CONC 34.2 g/dL (32.0-36.0); MEAN CORPUSCULAR VOLUME 87.5 fL (79-99); MONOCYTES % (AUTO) 5.1 % (3.0-13.0); NEUTROPHILS % (AUTO) 87.6 % (40.0-77.0); NUCLEATED RED BLOOD CELLS 0.4 % (0.0-0.19); PLATELET COUNT (AUTO) 417 K/uL (130-400); RED BLOOD CELL COUNT(AUTO) 4.41 MIL/uL (4.00-5.50); RED CELL DISTRIBUTION WIDTH 14.6 % (11.0-15.5); WHITE BLOOD COUNT (AUTO) 29.5 K/uL (4.8-10.8)
[2022-12-29 01:26] LABS: APPEARANCE,URINE CLOUDY (CLEAR); BILIRUBIN,URINE NEGATIVE (NEGATIVE); COLOR,URINE YELLOW (YELLOW); GLUCOSE, URINE (UA) NEGATIVE (NEGATIVE); KETONES,URINE NEGATIVE (NEGATIVE); LEUKOCYTE ESTERASE ,URINE 500 Leu/uL (NEGATIVE); NITRATE,URINE NEGATIVE (NEGATIVE); PROTEIN,URINE 50 mg/dL (NEGATIVE); UROBILINOGEN,URINE 0.2 mg/dL (0.2-1.0)
[2022-12-29] MEDS ORDERED: LEVOFLOXACIN 750 MG/D5W 150 ML 150 ML ONE (01:27)
[2022-12-29] MEDS ORDERED: METRONIDAZOLE 500MG/100ML BAG 100 ML ONE (01:27)
[2022-12-29 01:28] LABS: CREATININE 2.1 mg/dL (0.5-1.5)
[2022-12-29 01:30] LABS: BACTERIA,URINE RARE /HPF (None Seen); SQUAMOUS EPITHELIAL CELL,UR MOD /HPF (0-2); TRANSITIONAL EPI CELLS,URINE RARE /HPF (None Seen); WBC,URINE 26-50 /HPF (0-1); YEAST,URINE BUDDING FEW /HPF (None Seen)
[2022-12-29] MEDS ORDERED: LEVOFLOXACIN 750 MG/D5W 150ML BAG IVPB ONE (01:30)
[2022-12-29 01:32] LABS: ALBUMIN 2.7 g/dL (3.5-5.0); TOTAL PROTEIN, SERUM 5.6 g/dL (6.0-8.3)
[2022-12-29] MEDS ORDERED: TEMAZEPAM 15 MG CAPSULE PO PRN (03:00)
[2022-12-29] MEDS ORDERED: ONDANSETRON 4MG INJ IVP PRN (03:00)
[2022-12-29] MEDS ORDERED: ACETAMINOPHEN 325 MG TAB PO PRN (03:00)
[2022-12-29] MEDS ORDERED: LACTULOSE 20 GM/30 ML UDCUP PO PRN (03:00)
[2022-12-29] MEDS ORDERED: ACETAMINOPHEN 650 MG SUPPOSITORY RC PRN (03:00)
[2022-12-29] MEDS ORDERED: NOREPINEPHRIN 4MG/NS 250ML 250 ML IV SCH (03:00)
[2022-12-29] MEDS ORDERED: DOCUSATE SODIUM 100 MG CAP PO PRN (03:00)
[2022-12-29] MEDS ORDERED: LACTATED RINGERS 1000ML 1,000 ML IV SCH (03:00)
[2022-12-29] MEDS ORDERED: METRONIDAZOLE 500MG/100ML BAG 100 ML IVPB SCH (06:00)
[2022-12-29] MEDS ORDERED: SODIUM BICARB 50MEQ 50ML VIAL IV SCH (06:30)
[2022-12-29] MEDS: METRONIDAZOLE 500MG/100ML BAG 100 ML IVPB SCH ×2 (07:30→12:48)
[2022-12-29] MEDS: SODIUM BICARB 8.4% 50ML SYRING 150 MEQ in DEXTROSE 5%-WATER 850 ML IVP SCH ×2 (08:04→19:57)
[2022-12-29 10:23] LABS: CREATININE 1.6 mg/dL (0.5-1.5)
[2022-12-29 10:35] LABS: POTASSIUM 2.6 mmol/L (3.5-5.1)
[2022-12-29] MEDS ORDERED: LIDOCAINE HCL-MPF 1% 2ML VIAL IV PRN (11:00)
[2022-12-29] MEDS: KCL 20 MEQ ERTAB PO PRN ×8 (11:10→23:03)
[2022-12-29] MEDS: POTASSIUM CHLORIDE 10MEQ/100ML 100 ML IV PRN ×3 (11:10→17:06)
[2022-12-29 11:13] LABS: AMYLASE 100 U/L (25-115); LIPASE 609 U/L (114-286)
[2022-12-29] MEDS ORDERED: MEROPENEM 1 GM VIAL IVP SCH (14:00)
[2022-12-29] MEDS: MIDODRINE HCL 5 MG TABLET PO SCH ×2 (14:15→20:15)
[2022-12-29] MEDS ORDERED: GLUCAGON 1MG KIT 1 MG ML IM PRN (14:30)
[2022-12-29] MEDS ORDERED: DEXTROSE 50%-WATER 50 ML DISP.SYRIN IV PRN (14:30)
[2022-12-29] MEDS: MEROPENEM 1 GM VIAL IVP SCH (15:01)
[2022-12-29 16:08] LABS: BASOPHILS % (AUTO) 0.1 % (0.0-5.0); HEMATOCRIT 30.6 % (36-48); LYMPHOCYTES % (AUTO) 4.5 % (21.0-51.0); MEAN CORPUSCULAR HEMOGLOBIN 29.8 pg (27.0-33.0); MEAN CORPUSCULAR HGB CONC 34.6 g/dL (32.0-36.0); NEUTROPHILS % (AUTO) 87.8 % (40.0-77.0); NUCLEATED RED BLOOD CELLS 0.3 % (0.0-0.19); PLATELET COUNT (AUTO) 286 K/uL (130-400); RED BLOOD CELL COUNT(AUTO) 3.56 MIL/uL (4.00-5.50); RED CELL DISTRIBUTION WIDTH 14.2 % (11.0-15.5); WHITE BLOOD COUNT (AUTO) 21.7 K/uL (4.8-10.8)
[2022-12-29 16:22] LABS: ALBUMIN 1.9 g/dL (3.5-5.0); CREATININE 1.8 mg/dL (0.5-1.5); TOTAL PROTEIN, SERUM 4.4 g/dL (6.0-8.3)
[2022-12-29] MEDS: POTASSIUM CHLORIDE 10% ELIXIR 20 MEQ/15 ML UDCUP PO PRN ×2 (17:07→18:06)
[2022-12-29] MEDS: INSULIN HUMULIN R 100 UNIT/ML 3ML SQ SCH ×2 (17:23→20:20)
[2022-12-29] MEDS ORDERED: LEVOFLOXACIN 500 MG/D5W 100 ML 100 ML IV SCH (20:00)
[2022-12-29] MEDS: PANTOPRAZOLE 40 MG/VIAL IVP SCH (20:15)
[2022-12-30] MEDS: MEROPENEM 1 GM VIAL IVP SCH ×2 (01:53→14:30)
[2022-12-30] MEDS: SODIUM BICARB 8.4% 50ML SYRING 150 MEQ in DEXTROSE 5%-WATER 850 ML IVP SCH (02:30)
[2022-12-30 03:52] VITALS: BP 104/57
[2022-12-30 04:14] LABS: BASOPHILS % (AUTO) 0.1 % (0.0-5.0); HEMATOCRIT 28.1 % (36-48); LYMPHOCYTES % (AUTO) 7.2 % (21.0-51.0); MEAN CORPUSCULAR HEMOGLOBIN 29.7 pg (27.0-33.0); MEAN CORPUSCULAR HGB CONC 34.9 g/dL (32.0-36.0); MEAN CORPUSCULAR VOLUME 85.2 fL (79-99); MONOCYTES % (AUTO) 8.5 % (3.0-13.0); NEUTROPHILS % (AUTO) 83.5 % (40.0-77.0); NUCLEATED RED BLOOD CELLS 0.6 % (0.0-0.19); PLATELET COUNT (AUTO) 262 K/uL (130-400); RED CELL DISTRIBUTION WIDTH 14.2 % (11.0-15.5); WHITE BLOOD COUNT (AUTO) 20.3 K/uL (4.8-10.8)
[2022-12-30 04:28] LABS: ALBUMIN 1.7 g/dL (3.5-5.0); CREATININE 1.6 mg/dL (0.5-1.5); MAGNESIUM 1.5 mg/dL (1.80-2.40); PHOSPHORUS 0.6 mg/dL (2.5-4.9); POTASSIUM 3.4 mmol/L (3.5-5.1); TOTAL PROTEIN, SERUM 4.2 g/dL (6.0-8.3)
[2022-12-30] MEDS: INSULIN HUMULIN R 100 UNIT/ML 3ML SQ SCH ×4 (05:37→20:17)
[2022-12-30] MEDS: KCL 20 MEQ ERTAB PO PRN (05:38)
[2022-12-30] MEDS: 0.9%NACL 1000ML 1,000 ML IV SCH ×2 (06:36→19:45)
[2022-12-30 08:07] VITALS: BP 117/58
[2022-12-30] MEDS ORDERED: NACL 0.9% IV SCH (09:30)
[2022-12-30] MEDS ORDERED: POTASSIUM PHOSPHATE IV SCH (09:30)
[2022-12-30] MEDS ORDERED: MAGNESIUM 2GM PREMIX 50ML 50 ML IV SCH (09:30)
[2022-12-30] MEDS: MIDODRINE HCL 5 MG TABLET PO SCH ×3 (09:34→19:57)
[2022-12-30] MEDS: ENOXAPARIN SODIUM 30 MG/0.3 ML SQ SCH (09:34)
[2022-12-30] MEDS: PANTOPRAZOLE 40 MG/VIAL IVP SCH ×2 (09:34→19:57)
[2022-12-30 12:15] VITALS: BP 114/72
[2022-12-30] MEDS ORDERED: PHARMACY COMMUNICATION MISC SCH (14:30)
[2022-12-30] MEDS ORDERED: HONEY 1 APPL/ML TUBE TP SCH (16:00)
[2022-12-30 16:13] VITALS: BP 98/44
[2022-12-30] MEDS ORDERED: POTASSIUM PHOS 15 mMOL+NS250ML 250 ML IV PRN (17:00)
[2022-12-30 20:00] VITALS: BP 96/44
[2022-12-30 23:30] VITALS: BP 98/51
[2022-12-31] MEDS: MEROPENEM 1 GM VIAL IVP SCH ×2 (03:13→14:57)
[2022-12-31 04:00] VITALS: BP 101/50
[2022-12-31 05:57] LABS: BASOPHILS % (AUTO) 0.1 % (0.0-5.0); EOSINOPHILS % (AUTO) 0.7 % (0.0-8.0); HEMATOCRIT 26.5 % (36-48); LYMPHOCYTES % (AUTO) 10.8 % (21.0-51.0); MEAN CORPUSCULAR HEMOGLOBIN 29.6 pg (27.0-33.0); MEAN CORPUSCULAR HGB CONC 33.6 g/dL (32.0-36.0); MONOCYTES % (AUTO) 9.9 % (3.0-13.0); NEUTROPHILS % (AUTO) 77.4 % (40.0-77.0); NUCLEATED RED BLOOD CELLS 0.5 % (0.0-0.19); PLATELET COUNT (AUTO) 213 K/uL (130-400); RED BLOOD CELL COUNT(AUTO) 3.01 MIL/uL (4.00-5.50); RED CELL DISTRIBUTION WIDTH 14.8 % (11.0-15.5); WHITE BLOOD COUNT (AUTO) 13.8 K/uL (4.8-10.8)
[2022-12-31] MEDS: INSULIN HUMULIN R 100 UNIT/ML 3ML SQ SCH ×4 (06:01→20:15)
[2022-12-31 06:06] LABS: CREATININE 1.2 mg/dL (0.5-1.5); POTASSIUM 3.4 mmol/L (3.5-5.1)
[2022-12-31] MEDS: KCL 20 MEQ ERTAB PO PRN ×2 (06:08→09:11)
[2022-12-31 06:12] LABS: % IRON SATURATION 20.9 % (22-44)
[2022-12-31 07:30] VITALS: BP 98/47
[2022-12-31] MEDS: PANTOPRAZOLE 40 MG/VIAL IVP SCH ×2 (09:10→21:00)
[2022-12-31] MEDS: MIDODRINE HCL 5 MG TABLET PO SCH ×3 (09:10→21:00)
[2022-12-31] MEDS: ENOXAPARIN SODIUM 30 MG/0.3 ML SQ SCH (09:11)
[2022-12-31] MEDS: ZYVOX 600 MG TAB PO SCH ×2 (09:55→20:40)
[2022-12-31] MEDS ORDERED: PHARMACY COMMUNICATION MISC SCH (11:00)
[2022-12-31 11:26] VITALS: BP 108/52
[2022-12-31] MEDS ORDERED: COMPOUND PO MISCELLANEOUS 1 EACH MISC MISC PRN (11:30)
[2022-12-31] MEDS ORDERED: MAG/AL/SIMETH 30 ML+LIDO2% VISC+DIPHEN 75MG 30ML PO PRN ×3 (11:30)
[2022-12-31 15:30] VITALS: BP 120/77
[2022-12-31 18:12] LABS: INR 0.94 (0.85-1.15); PROTHROMBIN TIME 10.3 SEC (9.6-11.6)
[2022-12-31 18:13] LABS: PARTIAL THROMBOPLASTIN TIME 24.2 SEC (26.3-35.5)
[2022-12-31 20:00] VITALS: BP 116/59
[2022-12-31] MEDS ORDERED: IRON SUCROSE COMPLEX 300 MG in 0.9% NACL 250ML 250 ML IV SCH (21:00)
[2023-01-01] VITALS: BP 114/56
[2023-01-01] MEDS: MEROPENEM 1 GM VIAL IVP SCH ×2 (02:39→13:37)
[2023-01-01 04:00] VITALS: BP 125/52
[2023-01-01] MEDS: INSULIN HUMULIN R 100 UNIT/ML 3ML SQ SCH ×2 (06:09→11:30)
[2023-01-01 08:00] VITALS: BP 174/88
[2023-01-01] MEDS: PANTOPRAZOLE 40 MG/VIAL IVP SCH (10:37)
[2023-01-01] MEDS: ZYVOX 600 MG TAB PO SCH (10:38)
[2023-01-01] MEDS: ENOXAPARIN SODIUM 30 MG/0.3 ML SQ SCH (10:38)
[2023-01-01] MEDS: MIDODRINE HCL 5 MG TABLET PO SCH ×2 (10:38→13:37)
[2023-01-01 11:02] LABS: HEMATOCRIT 28.8 % (36-48); MEAN CORPUSCULAR HEMOGLOBIN 29.3 pg (27.0-33.0); MEAN CORPUSCULAR HGB CONC 33.7 g/dL (32.0-36.0); NUCLEATED RED BLOOD CELLS 0.3 % (0.0-0.19); RED BLOOD CELL COUNT(AUTO) 3.31 MIL/uL (4.00-5.50); RED CELL DISTRIBUTION WIDTH 15.4 % (11.0-15.5); WHITE BLOOD COUNT (AUTO) 15.3 K/uL (4.8-10.8)
[2023-01-01 11:09] LABS: MAGNESIUM 1.4 mg/dL (1.80-2.40); POTASSIUM 3.6 mmol/L (3.5-5.1)
[2023-01-01 12:00] VITALS: BP 126/59
[2023-01-01] MEDS ORDERED: COMPOUND IV MISC 1 EACH IVSOLN MISC PRN ×2 (13:00)
[2023-01-01] MEDS: KCL 20 MEQ ERTAB PO PRN (13:10)
[2023-01-01 16:00] VITALS: BP 128/67
[2023-01-01] MEDS ORDERED: IRON SUCROSE COMPLEX 300 MG in 0.9% NACL 250ML 250 ML IV SCH (21:00)
== END 2023-01-01 17:20 | DRG 871 ==
LOC: EDH 00:18 → EDHIP 02:51 → 2BH 04:38 → 2AH 19:23 → 3BH 12-31 02:50
PROVIDERS: ADMIT Internal Medicine Pulmonary Disease; ATTEND Internal Medicine Pulmonary Disease
PROC: 02HV33Z Insertion of Infusion Device into Superior Vena Cava, Percutaneous Approach (ICD-10-PCS; principal; 2023-01-01)
DX: A41.9 Sepsis, unspecified organism (principal); R65.21 Severe sepsis with septic shock; N17.9 Acute kidney failure, unspecified; Z16.21 Resistance to vancomycin; N12 Tubulo-interstitial nephritis, not specified as acute or chronic; K56.600 Partial intestinal obstruction, unspecified as to cause; E87.20 Acidosis, unspecified; T81.89XA Other complications of procedures, not elsewhere classified, initial encounter; E86.0 Dehydration; D64.9 Anemia, unspecified; E66.9 Obesity, unspecified; B95.2 Enterococcus as the cause of diseases classified elsewhere; I25.10 Atherosclerotic heart disease of native coronary artery without angina pectoris; J44.9 Chronic obstructive pulmonary disease, unspecified; I10 Essential (primary) hypertension; E87.6 Hypokalemia; E11.51 Type 2 diabetes mellitus with diabetic peripheral angiopathy without gangrene; E11.65 Type 2 diabetes mellitus with hyperglycemia; Z90.49 Acquired absence of other specified parts of digestive tract; Z87.891 Personal history of nicotine dependence; Z88.0 Allergy status to penicillin; Z90.5 Acquired absence of kidney; Z93.3 Colostomy status; Z68.32 Body mass index [BMI] 32.0-32.9, adult
CPT/HCPCS: 36415; 71045; 74176; 76700; 80048; 80053; 81001; 82150; 82948; 83540; 83550; 83605; 83690; 83735; 84100; 84132; 84484; 85025; 85027; 85610; 85730; 86677; 87040; 87077; 87088; 87186; 93005; 97039; C1894; C9113; G0378; J1650; J1756; J1815; J1956; J2185; J2270; J2405; J3475; J3490; J7030; J7050; J7070